=== PATIENT | female | born 1975 | race Two or more races ===

== ENCOUNTER 2018-05-15 14:55 | Emergency (ER) | payer MEDICAID ==
[~2018-05-15] VITALS: Ht 152.4 cm; Wt 58.1 kg
[2018-05-15 18:50] VITALS: BP 148/96
== END 2018-05-15 20:22 | disposition home or self-care (01) ==
LOC: ER 15:17
DX: R60.9 Edema, unspecified (principal); M79.641 Pain in right hand; M79.642 Pain in left hand; M79.671 Pain in right foot; M79.672 Pain in left foot; J45.909 Unspecified asthma, uncomplicated
CPT/HCPCS: 81025

== ENCOUNTER 2019-08-19 06:59 | Emergency (ER) | payer MEDICAID ==
[~2019-08-19] VITALS: Ht 149.9 cm; Wt 53.1 kg
[2019-08-19 07:09] VITALS: BP 147/98
[2019-08-19] MEDS ORDERED: KETOROLAC TROMETH 60MG/2ML VIAL IM ONE (07:30)
== END 2019-08-19 07:53 | disposition home or self-care (01) ==
LOC: ER 07:02
DX: S46.912A Strain of unspecified muscle, fascia and tendon at shoulder and upper arm level, left arm, initial encounter (principal); S46.911A Strain of unspecified muscle, fascia and tendon at shoulder and upper arm level, right arm, initial encounter; J45.909 Unspecified asthma, uncomplicated; X50.0XXA Overexertion from strenuous movement or load, initial encounter; Y93.B9 Activity, other involving muscle strengthening exercises; Y92.89 Other specified places as the place of occurrence of the external cause; Y99.8 Other external cause status
CPT/HCPCS: 96372; 99283; J1885

== ENCOUNTER 2020-01-05 11:58 | Emergency (ER) | payer MEDICAID ==
[~2020-01-05] VITALS: Ht 160 cm; Wt 63.5 kg
[2020-01-05 14:18] VITALS: BP 150/89
== END 2020-01-05 14:24 | disposition home or self-care (01) ==
LOC: ER 11:58
DX: J20.9 Acute bronchitis, unspecified (principal)
CPT/HCPCS: 71046

== ENCOUNTER 2020-03-16 13:10 | Inpatient (IN) | payer MEDICAID ==
[~2020-03-16] VITALS: Ht 149.9 cm; Wt 65.7 kg
[2020-03-16 14:16] LABS: Basophils # (auto) 0.1 10 ^3/uL (0-0.2); Basophils % (auto) 0.8 % (0.0-2.0); Eosinophils # (auto) 1.2 10 ^3/uL (0-0.8); Hemoglobin 12.9 g/dL (12.2-16.2); Lymphocytes # (auto) 2.6 10 ^3/uL (0.4-5.4); Mean Corpuscular Hemoglobin 28.9 pg (28.0-32.0); Mean Corpuscular Hgb Conc. 33.1 g/dL (32.0-36.0); Mean Corpuscular Volume 87.3 fL (80.0-100.0); Monocytes # (auto) 0.4 10 ^3/uL (0-1.3); Monocytes % (auto) 4.5 % (0.0-12.0); Neutrophils % (auto) 53.7 % (37.0-80.0); Platelet Count (auto) 523 10^3/uL (140-450); Red Blood Cells 4.46 10^6/uL (4.0-5.20); Red Cell Distribution Width 14.3 % (11.8-14.3); White Blood Cell 9.2 10^3/uL (4.4-10.8)
[2020-03-16 14:23] LABS: Urine WBC None Seen /hpf (0 - 5)
[2020-03-16 14:38] LABS: Albumin 3.4 g/dL (3.4-5.0); Calcium 8.6 mg/dL (8.5-10.1); Potassium 3.8 mmol/L (3.5-5.1)
[2020-03-16 14:43] LABS: Urine Bacteria FEW /hpf (None Seen); Urine Blood Negative /uL (Negative); Urine Mucus FEW (None Seen); Urine Specific Gravity 1.012 (1.001-1.035)
[2020-03-16 14:45] LABS: BUN/Creatinine Ratio 14.9; Bilirubin, Total 0.3 mg/dL (0.2-1.0); Total Protein 7.2 g/dL (6.4-8.2)
[2020-03-16] MEDS ORDERED: ONDANSETRON HCL 4 MG/2 ML VIAL IV ONE (14:45)
[2020-03-16] MEDS ORDERED: MORPHINE SULF INJ 2 MG/ML SYRINGE 1ML IV ONE (14:45)
[2020-03-16] MEDS ORDERED: levoFLOXacin 500MG 100 ML IV ONE (16:00)
[2020-03-16] MEDS ORDERED: metroNIDAZOLE 500MG/100ML 100 ML IV ONE (16:00)
[2020-03-16] MEDS ORDERED: SODIUM CHLORIDE 0.9% 1,000 ML IV ONE (16:15)
[2020-03-16] MEDS ORDERED: ONDANSETRON HCL 4 MG/2 ML VIAL IV PRN (18:15)
[2020-03-16] MEDS ORDERED: MORPHINE SULF INJ 2 MG/ML SYRINGE 1ML IV PRN (18:15)
[2020-03-16] MEDS ORDERED: NITROGLYCERIN 0.4 MG SL TAB SL PRN (18:15)
[2020-03-16 19:57] VITALS: BP 142/86
[2020-03-16] MEDS: D5W/SOD CHLO 0.9% 1,000 ML IV SCH (20:49)
--- NOTE | 2020-03-16 20:50 | NUR ---
MS admit from ER SUZ[facility]TE NG E admitted to tele/MS. Patient oriented to JANETH LUTZ, RN primary RN, unit, room, bed, and unit policies regarding patient care and visiting hours. Safety measures in place bed in lowest position, side rails up x2, and call light within reach. Patient weighed by bedscale and encouraged to call if they need something. All questions and concerns addressed, patient verbalized understanding.
[2020-03-16 22:00] VITALS: BP 142/86
[2020-03-16] MEDS: metroNIDAZOLE 500MG/100ML 100 ML IV SCH (22:23)
[2020-03-17 05:00] VITALS: BP 113/60
[2020-03-17] MEDS: metroNIDAZOLE 500MG/100ML 100 ML IV SCH ×3 (05:59→21:52)
[2020-03-17 06:29] LABS: Hematocrit 34.1 % (36.0-46.0); Hemoglobin 11.2 g/dL (12.2-16.2); Mean Corpuscular Hgb Conc. 32.8 g/dL (32.0-36.0); Mean Corpuscular Volume 88.6 fL (80.0-100.0); Platelet Count (auto) 418 10^3/uL (140-450); Red Blood Cells 3.85 10^6/uL (4.0-5.20); Red Cell Distribution Width 14.4 % (11.8-14.3); White Blood Cell 7.2 10^3/uL (4.4-10.8)
[2020-03-17 06:44] LABS: Potassium 3.7 mmol/L (3.5-5.1)
[2020-03-17 06:46] LABS: Basophils % (manual) 0 (0.0-2.0); Blast Cells 0; Metamyelocytes % 0; Myelocytes % 0; Promyelocytes % 0; Reactive Lymphocytes 0
[2020-03-17 07:17] LABS: Albumin 2.6 g/dL (3.4-5.0); BUN/Creatinine Ratio 9.4; Bilirubin, Total 0.3 mg/dL (0.2-1.0); Calcium 7.7 mg/dL (8.5-10.1)
[2020-03-17 08:26] LABS: Band Neutrophils % (manual) 1; Eosinophils % (manual) 16 (0-7); Lymphocytes % (manual) 31 (10.0-50.0); Monocytes % (manual) 4 (0-12)
[2020-03-17 09:00] VITALS: BP 107/69
[2020-03-17] MEDS: D5W/SOD CHLO 0.9% 1,000 ML IV SCH ×3 (10:17→21:52)
[2020-03-17] MEDS: PANTOPRAZOLE 40 MG TAB PO SCH (10:17)
[2020-03-17] MEDS: levoFLOXacin 500MG 100 ML IV SCH (10:17)
[2020-03-17] MEDS: MORPHINE SULF INJ 2 MG/ML SYRINGE 1ML IV PRN (10:22)
--- NOTE | 2020-03-17 11:15 | NUR ---
Est energy needs 0741-8783 kcal (25-30 kcal/kg BW 59.7kg) Est protein needs 48-60g (0.8-1g/kg BW 59.7kg) Will reassess prn. Addendum: 03/17/20 at [address] Amended: Links added.
[2020-03-17 13:00] VITALS: BP 113/70
--- NOTE | 2020-03-17 13:13 | NUR ---
PT AMBULATING IN HALLWAYS INDEPENDENTLY PER MD ORDER.
[2020-03-17 17:00] VITALS: BP 98/62
--- NOTE | 2020-03-17 19:20 | NUR ---
Opening Shift Note Assumed care of patient, Patient is awake and alert. No S/S of distress/SOB or pain. Instructed on POC and to call for assist PRN, will continue to monitor for changes Q1hr and PRN. Bed locked in lowest position and bed rails up x3. Call light within reach.
[2020-03-17] MEDS ORDERED: METH4TAB7 PO (19:35)
[2020-03-17] MEDS ORDERED: ALBUAER3 IN (19:35)
[2020-03-17] MEDS ORDERED: IBUP600T27 PO (19:35)
[2020-03-17] MEDS ORDERED: LORA-622 PO (19:35)
[2020-03-17] MEDS ORDERED: ALBU0.084 NEB (19:36)
[2020-03-17 22:00] VITALS: BP 150/98
[2020-03-18 05:00] VITALS: BP 118/56
[2020-03-18 05:12] LABS: Hematocrit 32.6 % (36.0-46.0); Hemoglobin 10.6 g/dL (12.2-16.2); Mean Corpuscular Hemoglobin 28.9 pg (28.0-32.0); Mean Corpuscular Hgb Conc. 32.5 g/dL (32.0-36.0); Mean Corpuscular Volume 89.1 fL (80.0-100.0); Platelet Count (auto) 387 10^3/uL (140-450); Red Blood Cells 3.66 10^6/uL (4.0-5.20); Red Cell Distribution Width 14.4 % (11.8-14.3); White Blood Cell 7.9 10^3/uL (4.4-10.8)
[2020-03-18 05:32] LABS: Potassium 3.7 mmol/L (3.5-5.1)
[2020-03-18 05:38] LABS: Albumin 2.5 g/dL (3.4-5.0); BUN/Creatinine Ratio 6.9; Calcium 7.8 mg/dL (8.5-10.1)
[2020-03-18 05:40] LABS: Basophils % (manual) 0 (0.0-2.0); Blast Cells 0; Metamyelocytes % 0; Myelocytes % 0; Promyelocytes % 0; Reactive Lymphocytes 0
[2020-03-18 05:41] LABS: Bilirubin, Total 0.2 mg/dL (0.2-1.0); Total Protein 5.9 g/dL (6.4-8.2)
[2020-03-18] MEDS: metroNIDAZOLE 500MG/100ML 100 ML IV SCH ×3 (06:25→22:06)
[2020-03-18 08:56] VITALS: BP 124/63
[2020-03-18] MEDS: PANTOPRAZOLE 40 MG TAB PO SCH (09:09)
[2020-03-18] MEDS: levoFLOXacin 500MG 100 ML IV SCH (09:09)
[2020-03-18] MEDS: D5W/SOD CHLO 0.9% 1,000 ML IV SCH ×2 (09:09→22:06)
[2020-03-18 11:00] LABS: Band Neutrophils % (manual) 1; Eosinophils % (manual) 21 (0-7); Lymphocytes % (manual) 34 (10.0-50.0); Monocytes % (manual) 3 (0-12)
[2020-03-18 12:58] VITALS: BP 136/73
--- NOTE | 2020-03-18 13:32 | NUR ---
PT REPORTS SHE WANTS TO WALK AROUND OUTSIDE TO SEE HER FAMILY. AMA SIGNED AND PLACED IN CHART.
[2020-03-18 17:00] VITALS: BP 159/76
[2020-03-18] MEDS: MORPHINE SULF INJ 2 MG/ML SYRINGE 1ML IV PRN (17:09)
[2020-03-18 18:37] VITALS: BP 149/81
--- NOTE | 2020-03-18 18:38 | NUR ---
CLEANER FURNITURE REPORTED PT BP 159/94, HR 76. GAVE PRN MORPHINE, BP NOW 149/94, HR 74. WILL CONTINUE TO MONITOR.
[2020-03-18 22:00] VITALS: BP 100/63
--- NOTE | 2020-03-19 02:54 | NUR ---
CARE ENDORSED TO DAY SHIFT RN MICKEY
--- NOTE | 2020-03-19 03:40 | NUR ---
Opening Shift Note: Assumed care of patient. Patient asleep at this time. No S/S of distress/SOB or pain. Bed in lowest locked position, side rails up x 2, call light within reach. Patient will be instructed on POC and to call for assist PRN, will continue to monitor for changes Q1hr and PRN.
[2020-03-19 05:00] VITALS: BP 120/73
[2020-03-19] MEDS: metroNIDAZOLE 500MG/100ML 100 ML IV SCH ×2 (05:28→14:00)
[2020-03-19 06:41] LABS: Hematocrit 32.1 % (36.0-46.0); Hemoglobin 10.5 g/dL (12.2-16.2); Mean Corpuscular Hemoglobin 28.9 pg (28.0-32.0); Mean Corpuscular Hgb Conc. 32.8 g/dL (32.0-36.0); Mean Corpuscular Volume 88.2 fL (80.0-100.0); Platelet Count (auto) 398 10^3/uL (140-450); Red Blood Cells 3.64 10^6/uL (4.0-5.20); Red Cell Distribution Width 14.2 % (11.8-14.3); White Blood Cell 7.3 10^3/uL (4.4-10.8)
[2020-03-19 06:43] LABS: Band Neutrophils % (manual) 0; Basophils % (manual) 0 (0.0-2.0); Blast Cells 0; Metamyelocytes % 0; Myelocytes % 0; Promyelocytes % 0; Reactive Lymphocytes 0
[2020-03-19 07:10] LABS: Potassium 3.7 mmol/L (3.5-5.1)
[2020-03-19 07:15] LABS: BUN/Creatinine Ratio 14.1; Calcium 7.8 mg/dL (8.5-10.1)
[2020-03-19 08:19] LABS: Eosinophils % (manual) 19 (0-7); Lymphocytes % (manual) 37 (10.0-50.0); Monocytes % (manual) 4 (0-12)
[2020-03-19 08:50] VITALS: BP 116/69
[2020-03-19] MEDS: PANTOPRAZOLE 40 MG TAB PO SCH (09:55)
[2020-03-19] MEDS: levoFLOXacin 500MG 100 ML IV SCH (09:55)
--- NOTE | 2020-03-19 12:46 | NUR ---
DR. MURDOCK: Dr. Orantes at bedside. Discussed poc with patient.
[2020-03-19 12:48] VITALS: BP 134/85
[2020-03-19 13:39] VITALS: BP 116/69
== END 2020-03-19 15:17 | disposition home or self-care (01) | DRG 244 ==
LOC: ER 13:10 → OVERFLOW 13:11 → WEST WING 19:58
PROVIDERS: ADMIT Nurse Practitioner Acute Care; ATTEND Internal Medicine
DX: K57.32 Diverticulitis of large intestine without perforation or abscess without bleeding (principal); E43 Unspecified severe protein-calorie malnutrition; J45.909 Unspecified asthma, uncomplicated; N83.201 Unspecified ovarian cyst, right side; E66.9 Obesity, unspecified; N83.202 Unspecified ovarian cyst, left side; Z68.29 Body mass index [BMI] 29.0-29.9, adult; F41.9 Anxiety disorder, unspecified; Z88.0 Allergy status to penicillin
CPT/HCPCS: 36415; 74176; 76856; 80048; 80053; 81001; 81025; 82150; 83690; 85007; 85025; 85027; 96365; 96366; 96367; 96375; G0378; J1956; J2405; J3490; J7042

== ENCOUNTER 2020-07-15 12:10 | Emergency (ER) | payer MEDICAID ==
[~2020-07-15] VITALS: Ht 149.9 cm; Wt 58.1 kg
[~2020-07-15 12:10] MED LIST: ALBU0.084 NEB; ALBUAER3 IN; IBUP600T27 PO; LORA-622 PO; METH4TAB7 PO
[2020-07-15 12:16] VITALS: BP 149/100
== END 2020-07-15 14:15 | disposition home or self-care (01) ==
LOC: ER 12:10
DX: U07.1 COVID-19 (principal)
CPT/HCPCS: 36415; 71045; 87426

== ENCOUNTER 2020-12-03 09:39 | Emergency (ER) | payer MEDICAID ==
[~2020-12-03] VITALS: Ht 149.9 cm; Wt 58.1 kg
[2020-12-03 09:49] VITALS: BP 117/90
[2020-12-03] MEDS: KETOROLAC TROMETH 60MG/2ML VIAL IM ONE ×2 (10:09→10:10)
[2020-12-03 10:14] LABS: Mean Corpuscular Hemoglobin 23.5 pg (28.0-32.0)
[2020-12-03 10:14] LABS: Urine Amorphous Crystal FEW /hpf (None Seen); Urine Bacteria FEW /hpf (None Seen); Urine Blood 3+ /uL (Negative); Urine Mucus FEW (None Seen); Urine Specific Gravity 1.024 (1.001-1.035); Urine WBC 8 /hpf (0 - 5)
[2020-12-03 10:16] LABS: Hematocrit 36.4 % (36.0-46.0); Hemoglobin 11.6 g/dL (12.2-16.2); Mean Corpuscular Hgb Conc. 31.8 g/dL (32.0-36.0); Mean Corpuscular Volume 73.8 fL (80.0-100.0); Platelet Count (auto) 584 10^3/uL (140-450); Red Blood Cells 4.93 10^6/uL (4.0-5.20); Red Cell Distribution Width 18.4 % (11.8-14.3); White Blood Cell 7.7 10^3/uL (4.4-10.8)
[2020-12-03 10:20] LABS: Band Neutrophils % (manual) 0; Basophils % (manual) 0 (0.0-2.0); Blast Cells 0; Metamyelocytes % 0; Myelocytes % 0; Promyelocytes % 0; Reactive Lymphocytes 0
[2020-12-03 10:38] LABS: Calcium 8.7 mg/dL (8.5-10.1); Potassium 3.9 mmol/L (3.5-5.1)
[2020-12-03 10:41] LABS: BUN/Creatinine Ratio 20.3
[2020-12-03 11:46] LABS: Eosinophils % (manual) 28 (0-7); Lymphocytes % (manual) 39 (10.0-50.0); Monocytes % (manual) 2 (0-12)
== END 2020-12-03 11:45 | disposition home or self-care (01) ==
LOC: ER 09:39
DX: N83.201 Unspecified ovarian cyst, right side (principal); N85.2 Hypertrophy of uterus; J45.909 Unspecified asthma, uncomplicated; Z32.02 Encounter for pregnancy test, result negative; Z90.49 Acquired absence of other specified parts of digestive tract; Z88.0 Allergy status to penicillin
CPT/HCPCS: 36415; 76856; 80048; 81001; 81025; 85007; 85027; 99284; J1885; J7030

== ENCOUNTER 2020-12-13 06:18 | Emergency (ER) | payer MEDICAID ==
[~2020-12-13] VITALS: Ht 149.9 cm; Wt 59.9 kg
[2020-12-13 07:27] LABS: Red Cell Distribution Width 19.7 % (11.8-14.3)
[2020-12-13 07:29] LABS: Hematocrit 31.2 % (36.0-46.0); Hemoglobin 10.2 g/dL (12.2-16.2); Mean Corpuscular Hemoglobin 24.4 pg (28.0-32.0); Mean Corpuscular Hgb Conc. 32.8 g/dL (32.0-36.0); Mean Corpuscular Volume 74.5 fL (80.0-100.0); Red Blood Cells 4.19 10^6/uL (4.0-5.20); White Blood Cell 7.5 10^3/uL (4.4-10.8)
[2020-12-13 07:31] LABS: Band Neutrophils % (manual) 0; Basophils % (manual) 0 (0.0-2.0); Blast Cells 0; Metamyelocytes % 0; Monocytes % (manual) 0 (0-12); Myelocytes % 0; Promyelocytes % 0; Reactive Lymphocytes 0
[2020-12-13 07:49] LABS: Potassium 3.7 mmol/L (3.5-5.1)
[2020-12-13 07:54] LABS: Albumin 3.1 g/dL (3.4-5.0); BUN/Creatinine Ratio 19.7; Bilirubin, Total 0.2 mg/dL (0.2-1.0); Calcium 8.6 mg/dL (8.5-10.1); Total Protein 6.6 g/dL (6.4-8.2)
[2020-12-13 08:23] LABS: Eosinophils % (manual) 20 (0-7); Lymphocytes % (manual) 23 (10.0-50.0)
[2020-12-13] MEDS ORDERED: ACETAMINOPHEN 325 MG TAB PO ONE (10:00)
[2020-12-13] MEDS ORDERED: cefTRIAXone W LIDOCAINE 1 GM IM IM ONE (10:00)
[2020-12-13 10:15] LABS: Urine Bacteria NONE SEEN /hpf (None Seen); Urine Blood Negative /uL (Negative); Urine Specific Gravity 1.015 (1.001-1.035); Urine WBC 2 /hpf (0 - 5)
[2020-12-13] MEDS: cefTRIAXone W LIDOCAINE 1 GM IM IM ONE ×2 (11:17→11:22)
[2020-12-13 11:28] VITALS: BP 124/85
== END 2020-12-13 11:40 | disposition home or self-care (01) ==
LOC: ER 06:18
DX: J06.9 Acute upper respiratory infection, unspecified (principal); F41.9 Anxiety disorder, unspecified; J45.909 Unspecified asthma, uncomplicated; Z79.899 Other long term (current) drug therapy; Z88.0 Allergy status to penicillin
CPT/HCPCS: 36415; 71045; 80053; 81001; 85007; 85027; 99285; J0696

== ENCOUNTER 2021-06-02 11:56 | Emergency (ER) | payer MEDICAID ==
[~2021-06-02] VITALS: Ht 149.9 cm; Wt 58.5 kg
[2021-06-02] MEDS ORDERED: ACETAMINOPHEN 500 MG TAB PO ONE (13:00)
[2021-06-02] MEDS ORDERED: cefTRIAXone SOD 1,000 MG VL IM ONE (13:00)
[2021-06-02 13:02] VITALS: BP 149/93
== END 2021-06-02 13:51 | disposition home or self-care (01) ==
LOC: ER 11:56
DX: J03.90 Acute tonsillitis, unspecified (principal); J45.909 Unspecified asthma, uncomplicated; Z98.51 Tubal ligation status; Z88.0 Allergy status to penicillin
CPT/HCPCS: 71045; 81002; 96372; 99283; J0696

== ENCOUNTER 2021-10-10 08:22 | Emergency (ER) | payer MEDICAID ==
[~2021-10-10] VITALS: Ht 149.9 cm; Wt 58.1 kg
[2021-10-10 08:54] VITALS: BP 138/87
[2021-10-10 09:20] LABS: Urine Bacteria NONE SEEN /hpf (None Seen); Urine Blood 1+ /uL (Negative); Urine Mucus FEW (None Seen); Urine Specific Gravity 1.019 (1.001-1.035); Urine WBC 1 /hpf (0 - 5)
[2021-10-10] MEDS ORDERED: ALBUTEROL SULF 2.5 MG/0.5ML(0.5%) NEB SOLN ONE (09:54)
[2021-10-10] MEDS ORDERED: IPRATROPIUM BROM 0.5 MG/2.5ML INH SOL ONE (09:56)
[2021-10-10] MEDS ORDERED: ALBUTEROL SULF 2.5 MG/0.5ML(0.5%) NEB SOLN NEB ONE (10:00)
[2021-10-10] MEDS ORDERED: IPRATROPIUM BROM 0.5 MG/2.5ML INH SOL NEB ONE (10:00)
[2021-10-10] MEDS ORDERED: ALBU108A5 IN (10:04)
[2021-10-10] MEDS ORDERED: PRED20TA2 PO (10:04)
[2021-10-10] MEDS ORDERED: CEPH500T PO (10:04)
== END 2021-10-10 10:25 | disposition home or self-care (01) ==
LOC: ER 08:22
DX: J45.901 Unspecified asthma with (acute) exacerbation (principal); J20.9 Acute bronchitis, unspecified; H66.92 Otitis media, unspecified, left ear; Z20.822 Contact with and (suspected) exposure to COVID-19
CPT/HCPCS: 36415; 71046; 81001; 81025; 87426; 94640; 99284; J7644

== ENCOUNTER 2022-04-10 10:11 | Emergency (ER) | payer MEDICAID ==
[~2022-04-10] VITALS: Ht 149.9 cm; Wt 58.1 kg
[~2022-04-10 10:11] MED LIST changes: +ALBU108A5 IN; +CEPH500T PO; +PRED20TA2 PO
[2022-04-10 10:36] VITALS: BP 161/98
[2022-04-10 12:21] LABS: Urine Bacteria NONE SEEN /hpf (None Seen); Urine Blood Negative /uL (Negative); Urine Mucus FEW (None Seen); Urine Specific Gravity 1.017 (1.001-1.035); Urine WBC 1 /hpf (0 - 5)
[2022-04-10 12:24] LABS: Basophils # (auto) 0 10 ^3/uL (0-0.2); Basophils % (auto) 0.2 % (0.0-2.0); Eosinophils # (auto) 0.9 10 ^3/uL (0-0.8); Monocytes # (auto) 0.4 10 ^3/uL (0-1.3)
[2022-04-10 12:26] LABS: Eosinophils % (auto) 11.8 % (0.0-7.0); Hematocrit 38.4 % (36.0-46.0); Hemoglobin 12.2 g/dL (12.2-16.2); Lymphocytes % (auto) 13.2 % (10.0-50.0); Mean Corpuscular Hemoglobin 25.8 pg (28.0-32.0); Mean Corpuscular Hgb Conc. 31.9 g/dL (32.0-36.0); Mean Corpuscular Volume 81.1 fL (80.0-100.0); Neutrophils # (auto) 5.5 10 ^3/uL (1.6-8.6); Neutrophils % (auto) 69.8 % (37.0-80.0); Nucleated Red Blood Cells % 0.1 %; Red Blood Cells 4.73 10^6/uL (4.0-5.20); Red Cell Distribution Width 15.6 % (11.8-14.3); White Blood Cell 7.9 10^3/uL (4.4-10.8)
[2022-04-10 12:41] LABS: Albumin 3.2 g/dL (3.4-5.0); BUN/Creatinine Ratio 13.4; Calcium 8.8 mg/dL (8.5-10.1); Potassium 4.3 mmol/L (3.5-5.1)
[2022-04-10 12:44] LABS: Bilirubin, Total 0.4 mg/dL (0.2-1.0); Total Protein 7.2 g/dL (6.4-8.2)
[2022-04-10] MEDS ORDERED: ACET-1158 PO (14:17)
[2022-04-10] MEDS ORDERED: DOXY-332 PO (14:17)
[2022-04-10] MEDS ORDERED: ACETAMINOPHEN 325 MG TAB PO ONE (14:30)
== END 2022-04-10 16:13 | disposition home or self-care (01) ==
LOC: ER 10:11
DX: U07.1 COVID-19 (principal); J06.9 Acute upper respiratory infection, unspecified; Z32.02 Encounter for pregnancy test, result negative; Z88.0 Allergy status to penicillin
CPT/HCPCS: 36415; 74176; 80053; 81001; 81025; 83690; 85025; 87804

== ENCOUNTER 2022-08-13 11:45 | Emergency (ER) | payer MEDICAID ==
[~2022-08-13] VITALS: Ht 149.9 cm; Wt 54.0 kg
[~2022-08-13 11:45] MED LIST changes: +ACET-1158 PO; +DOXY-332 PO
[2022-08-13 12:55] LABS: Hemoglobin 14.1 g/dL (12.2-16.2)
[2022-08-13 12:56] LABS: Hematocrit 42.9 % (36.0-46.0); Mean Corpuscular Hemoglobin 28.4 pg (28.0-32.0); Mean Corpuscular Hgb Conc. 32.8 g/dL (32.0-36.0); Mean Corpuscular Volume 86.7 fL (80.0-100.0); Red Blood Cells 4.95 10^6/uL (4.0-5.20); Red Cell Distribution Width 14.3 % (11.8-14.3); White Blood Cell 8.8 10^3/uL (4.4-10.8)
[2022-08-13 13:00] LABS: Basophils % (manual) 0 (0.0-2.0); Blast Cells 0; Metamyelocytes % 0; Myelocytes % 0; Promyelocytes % 0; Reactive Lymphocytes 0
[2022-08-13 13:20] LABS: Albumin 3.6 g/dL (3.4-5.0); BUN/Creatinine Ratio 17.6; Bilirubin, Total 0.4 mg/dL (0.2-1.0); Calcium 9.1 mg/dL (8.5-10.1); Potassium 4.3 mmol/L (3.5-5.1); Total Protein 7.5 g/dL (6.4-8.2)
[2022-08-13 14:16] LABS: Band Neutrophils % (manual) 3; Eosinophils % (manual) 21 (0-7); Lymphocytes % (manual) 33 (10.0-50.0); Monocytes % (manual) 5 (0-12)
[2022-08-13 15:19] LABS: Urine Bacteria FEW /hpf (None Seen); Urine Blood 1+ /uL (Negative); Urine Mucus FEW (None Seen); Urine Specific Gravity 1.016 (1.001-1.035); Urine WBC <1 /hpf (0 - 5)
[2022-08-13 17:40] VITALS: BP 157/94
== END 2022-08-13 17:42 | disposition home or self-care (01) ==
LOC: ER 11:45
DX: R10.11 Right upper quadrant pain (principal); Z79.1 Long term (current) use of non-steroidal anti-inflammatories (NSAID); Z79.899 Other long term (current) drug therapy; Z88.0 Allergy status to penicillin
CPT/HCPCS: 36415; 74176; 80053; 81001; 82150; 83690; 84702; 85007; 85027; A4565

== ENCOUNTER 2022-12-04 19:45 | Emergency (ER) | payer MEDICAID ==
[~2022-12-04] VITALS: Ht 149.9 cm; Wt 60.0 kg
[2022-12-04 21:03] LABS: Hematocrit 38.7 % (36.0-46.0)
[2022-12-04 21:05] LABS: Mean Corpuscular Hemoglobin 29.7 pg (28.0-32.0); Mean Corpuscular Hgb Conc. 33.6 g/dL (32.0-36.0); Mean Corpuscular Volume 88.4 fL (80.0-100.0); Red Blood Cells 4.38 10^6/uL (4.0-5.20); Red Cell Distribution Width 13.9 % (11.8-14.3); White Blood Cell 9.3 10^3/uL (4.4-10.8)
[2022-12-04 21:08] LABS: Band Neutrophils % (manual) 0; Basophils % (manual) 0 (0.0-2.0); Blast Cells 0; Metamyelocytes % 0; Myelocytes % 0; Promyelocytes % 0; Reactive Lymphocytes 0
[2022-12-04 21:12] LABS: Albumin 3.4 g/dL (3.4-5.0); BUN/Creatinine Ratio 24.3; Calcium 8.5 mg/dL (8.5-10.1); Potassium 3.7 mmol/L (3.5-5.1)
[2022-12-04 21:15] LABS: Bilirubin, Total 0.2 mg/dL (0.2-1.0); Total Protein 7.6 g/dL (6.4-8.2)
[2022-12-04 21:34] LABS: Eosinophils % (manual) 19 (0-7); Lymphocytes % (manual) 37 (10.0-50.0); Monocytes % (manual) 7 (0-12)
[2022-12-04] MEDS ORDERED: KETOROLAC TROMETH 30 MG/ML 1ML VIAL IM ONE (22:00)
[2022-12-04] MEDS ORDERED: CYCL-837 PO (22:04)
[2022-12-04 22:51] VITALS: BP 149/93
== END 2022-12-04 22:53 | disposition home or self-care (01) ==
LOC: ER 19:49
DX: G44.209 Tension-type headache, unspecified, not intractable (principal); R07.89 Other chest pain; J45.909 Unspecified asthma, uncomplicated
CPT/HCPCS: 36415; 70450; 71045; 80053; 84484; 85007; 85027; 96372; 99285; J1885

== ENCOUNTER 2023-10-04 17:20 | Emergency (ER) | payer MEDICAID ==
[~2023-10-04] VITALS: Ht 149.9 cm; Wt 61.3 kg
[~2023-10-04 17:20] MED LIST changes: -ACET-1158 PO; +ACET500T58 PO; +CYCL-837 PO; -DOXY-332 PO; +DOXY-448 PO; +IBUP-1454 PO; -IBUP600T27 PO; -METH4TAB7 PO; +METH4TAB9 PO
[2023-10-04 18:37] LABS: Mean Corpuscular Hgb Conc. 33.5 g/dL (32.0-36.0); Red Blood Cells 4.59 10^6/uL (4.0-5.20)
[2023-10-04 18:39] LABS: Hematocrit 40.7 % (36.0-46.0); Hemoglobin 13.6 g/dL (12.2-16.2); Mean Corpuscular Hemoglobin 29.7 pg (28.0-32.0); Mean Corpuscular Volume 88.6 fL (80.0-100.0); Red Cell Distribution Width 13.6 % (11.8-14.3); White Blood Cell 8.7 10^3/uL (4.4-10.8)
[2023-10-04 18:43] LABS: Basophils % (manual) 0 (0.0-2.0); Blast Cells 0; Promyelocytes % 0; Reactive Lymphocytes 0
[2023-10-04 18:56] LABS: Alanine Aminotransferase 40 U/L (7-40); Albumin 4.4 g/dL (3.2-4.8); Alkaline Phosphatase 138 U/L (46-116); Anion Gap 6 (5-15); Aspartate Aminotransferase 41 U/L (13-40); BUN/Creatinine Ratio 14.1 (10.0-20.0); Blood Urea Nitrogen 10 mg/dL (9-23); Calcium 9.6 mg/dL (8.5-10.1); Carbon Dioxide 28 mmol/L (20-30); Chloride 105 mmol/L (98-107); Glucose 97 mg/dL (74-106); Potassium 3.7 mmol/L (3.5-5.1); Sodium 139 mmol/L (136-145)
[2023-10-04 18:57] LABS: Bilirubin, Total 0.3 mg/dL (0.2-1.0); Total Protein 7.3 g/dL (5.7-8.2)
[2023-10-04 19:25] LABS: Band Neutrophils % (manual) 17; Eosinophils % (manual) 8 (0-7); Lymphocytes % (manual) 20 (10.0-50.0); Metamyelocytes % 4; Monocytes % (manual) 5 (0-12); Myelocytes % 1; Platelet Estimate Adequate; Smudge Cells 1 /100 WBC
[2023-10-04 21:16] LABS: Urine Bacteria NONE SEEN /hpf (None Seen); Urine Blood 3+ /uL (Negative); Urine Clarity Clear (Clear); Urine Color Yellow (Yellow); Urine Protein, UAD Negative (Negative); Urine Specific Gravity 1.017 (1.001-1.035); Urine Urobilinogen Normal (Negative); Urine WBC 14 /hpf (0 - 5); Urine pH 5.5 (5.0-8.0)
[2023-10-04] MEDS ORDERED: NITROFURANTOIN 100 mg CAP PO ONE (21:45)
[2023-10-04] MEDS ORDERED: ACET500T58 PO (21:50)
[2023-10-04] MEDS ORDERED: NITR-87 PO (21:50)
[2023-10-04] MEDS ORDERED: PHEN-1044 PO (21:50)
[2023-10-04 22:38] VITALS: BP 138/88; PULSE 81; RESP 16; TEMP 98.4; O2SAT 96
== END 2023-10-04 22:40 | disposition home or self-care (01) ==
LOC: ER 17:20
DX: N39.0 Urinary tract infection, site not specified (principal); J45.909 Unspecified asthma, uncomplicated; Z98.51 Tubal ligation status; Z32.02 Encounter for pregnancy test, result negative; Z88.0 Allergy status to penicillin
CPT/HCPCS: 36415; 80053; 81001; 81025; 85007; 85027

== ENCOUNTER 2025-03-19 08:50 | Emergency (ER) | payer MEDICAID ==
[~2025-03-19] VITALS: Ht 149.9 cm; Wt 60.7 kg
[~2025-03-19 08:50] MED LIST changes: -DOXY-448 PO; +DOXY100C79 PO; +NITR-87 PO; +PHEN-1044 PO
--- NOTE | 2025-03-19 09:41 | ED.PDOC ---
History of Present Illness(SKN HPI Comments This is a 49 year old female presenting to the ED with chief complaint of rash. 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 Patient relays that she had gotten sick with something she picked up from work, spreading it to her son and causing the symptoms of rash to their necks. Patient denies any fever, chills, N/V/D, chest pain, or SOB. Chief Complaint: Rash Time Seen by MD: 09:40 Primary Care Provider: Ysabel History of Present Illness: Nurses Notes, Medications, Allergies Allergies: Coded Allergies: Penicillins (Verified Allergy, Unknown, 12/03/20) Uncoded Allergies: PCN (Allergy, Unknown, 08/19/19) Home Meds Active Scripts Acetaminophen (Acetaminophen) 500 Mg Tab, 500 MG PO Q4HP PRN, #20 TAB Prov:DANAE SANCHEZ PAC 10/04/23 Phenazopyridine HCl (Phenazopyridine Hydrochlo) 100 Mg Tab, 100 MG PO Q8HP PRN, #10 TAB Prov:DANAE SANCHEZ PAC 10/04/23 Nitrofurantoin Monohydrate Mac (Macrobid) 100 Mg Cap, 100 MG PO BID for 5 Days, #10 CAP Prov:DANAE SANCHEZ PAC 10/04/23 Cyclobenzaprine Hcl (Cyclobenzaprine Hcl) 5 Mg Tab, 1 TAB PO QPM PRN, #30 TAB Prov:BLAS COLLAZO 12/04/22 Doxycycline (Monohydrate) (Doxycycline) 100 Mg Cap, 100 MG PO BID for 7 Days, #14 CAP 0 Refills Prov:JOSE ALEJANDRO COX 04/10/22 Acetaminophen (Acetaminophen) 500 Mg Tab, 500 MG PO QIDP, #30 TAB 0 Refills Prov:JOSE ALEJANDRO COX 04/10/22 Albuterol Sulfate (Albuterol Sulfate Hfa) 108 Mcg/Act Aer, 108 MCG IN TID for 20 Days, #1 AER 0 Refills Prov:SULEIMAN FORD 10/10/21 Prednisone (Prednisone) 20 Mg Tab, 60 MG PO DAILY for 5 Days, #15 MG Prov:SULEIMAN FORD 10/10/21 Cephalexin Monohydrate (Cephalexin) 500 Mg Tab, 500 MG PO QID for 7 Days, #28 TAB Prov:SULEIMAN FORD TYRESE 10/10/21 Reported Medications Albuterol Sulfate (Albuterol Sulfate) 0.083 % Neb, 1 VIAL NEB PRN PRN for PRN, #50 VIAL 03/17/20 Methylprednisolone (Methylprednisolone) 4 Mg Tab, 4 MG PO BID PRN for "FLARE- UP", MG 03/17/20 Loratadine (Claritin) 10 Mg Tab, 1 TAB PO DAILY PRN for ALLERGIES, #30 TAB 5 Refills 03/17/20 Albuterol Sulfate (VENTOLIN MDI) 90 Mcg Ih, 2 PUFF IN PRN PRN for PRN, INH 03/17/20 Ibuprofen (Ibuprofen) 600 Mg Tab, 600 MG PO BID PRN for PAIN, MG 0 Refills 03/17/20 Information Source: Patient Mode of Arrival: Ambulatory Severity: Moderate Timing: Days Duration: Since onset Prehospital treatment: None Location: Neck Past Medical History PAST MEDICAL HISTORY: Asthma Past Medical History (Other): Well's Syndrome 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 History: BTL, 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 Family History Family History: Family hx of DM, Family hx of Cancer, Family hx of heart roshni, Family hx of HTN Social History Smoker: Non-Smoker Alcohol: Occasionally Drugs: Denies Drug Use Lives In: Home Constitutional: denies: chills, diaphoresis, fatigue, fever, malaise, sweats, weakness, others EENTM: denies: blurred vision, double vision, ear bleeding, ear discharge, ear drainage, ear pain, ear ringing, eye pain, eye redness, hearing loss, mouth pain, mouth swelling, nasal discharge, nose bleeding, nose congestion, nose pain, photophobia, tearing, throat pain, throat swelling, voice changes, others Respiratory: denies: cough, hemoptysis, orthopnea, SOB at rest, shortness of breath, SOB with excertion, stridor, wheezing, others Cardiovascular: denies: chest pain, dizzy spells, diaphoresis, Dyspnea on exertion, edema, irregular heart beat, left arm pain, lightheadedness, palpitations, PND, syncope, others Gastrointestinal: denies: abdomen distended, abdominal pain, blood streaked bowels, constipated, diarrhea, dysphagia, difficulty swallowing, hematemesis, melena, nausea, poor appetite, poor fluid intake, rectal bleeding, rectal pain, vomiting, others Genitourinary: denies: abnormal vagina bleeding, burning, dyspareunia, dysuria, flank pain, frequency, hematuria, incontinence, pain, , vagina discharge, urgency, others Neurological: denies: dizziness, fainting, headache, left sided numbness, left sided weakness, numbness, paresthesia, pre-existing deficit, right sided numbness, right sided weakness, seizure, speech problems, tingling, tremors, weakness, others Musculoskeletal: denies: back pain, gout, joint pain, joint swelling, muscle pain, muscle stiffness, neck pain, others Integumetry: reports: rash; denies: bruises, change in color, change in hair/nails, dryness, laceration, lesions, lumps, wounds, others Allergic/Immunocompromised: denies: Difficulty Healing, Frequent Infections, Hives, Itching, others Hematologic/Lymphatic: denies: anemia, blood clots, easy bleeding, easy bruising, swollen glands, others Endocrine: denies: excessive hunger, excessive sweating, excessive thirst, excessive urination, flushing, intolerance to cold, intolerance to heat, unexplained weight gain, unexplained weight loss, others Psychiatric: denies: anxiety, bipolar disorder, depression, hopeless, panic disorder, schizophrenia, sleepless, suicidal, others All Other Systems: Reviewed and Negative Physical Exam General Appearance: No Apparent Distress, Normal HEENT: Normal ENT Inspection, Pharynx Normal, TMs Normal Neck: Full Range of Motion, Non-Tender, Normal, Normal Inspection Respiratory: Chest Non-Tender, Lungs Clear, No Accessory Muscle Use, No Respiratory Distress, Normal Breath Sounds Cardiovascular: No Edema, No JVD, No Murmur, No Gallop, Normal Peripheral Pulses, Regular Rate/Rhythm Breast Exam: Deferred Gastrointestinal: No Organomegaly, Non Tender, No Pulsatile Mass, Normal Bowel Sounds, Soft Genitalia: Deferred Pelvic: Deferred Rectal: Deferred Extremities: No calf tenderness, Normal capillary refill, Normal inspection, Normal range of motion, Non-tender, No pedal edema Musculoskeletal : Apperance: Normal Neurologic: Alert, cornice maker II-XII nml as Tested, No Motor Deficits, Normal Affect, Normal Mood, No Sensory Deficits Cerebellar Function: Normal Reflexes: Normal Skin: Dry, Warm, Other (Erythematous patch to left neck) Lymphatic: No Adenopathy Was a procedure done? Was a procedure done?: No Differential Diagnosis (INTG) Differential Diagnosis: Cellulitis Differential Diagnosis: N/A Differential Diagnosis: N/A Abscess: N/A Differential Diagnosis: N/A X-Ray, Labs, Meds, VS Vital Signs Date Time Temp Pulse Resp B/P (MAP) Pulse Ox O2 Delivery O2 Flow Rate FiO2 03/19/25 09:14 97.7 95 16 142/93 (109) 97 97.7 Time of 1ST Reevaluation: 10:00 Reevaluation 1ST: Unchanged Patient Education/Counseling: Diagnosis, Treatment Family Education/Counseling: No Family Present Additional Information Previous visits reviewed: 10/04/24 for UTI The following tests were ordered, and results were reviewed by me: None Additional Information was gathered from interviewing the following independent historians: None I reviewed and agreed with the following test results read by other providers: None I discussed treatment and results with medical personnel and: patient Comprehensive systems review obtained and negative except for what is stated in the HPI. SEPSIS Sepsis Screen Date sepsis recognized/suspect: Mar 19, 2025 Time Sepsis recognized/suspect: 913 Recent Procedure: No On Antibiotic Therapy: No Respiratory Rate >20: No Heart Rate >90: Yes Temp<36 C (96.8 F) or >38.3 C: No SBP <90 or MAP <65 mmHG: No New Acute Mental Status Change: No Is the patient on CPAP, BIPAP,: No Vital Signs Date Time Temp Pulse Resp B/P (MAP) Pulse Ox O2 Delivery O2 Flow Rate FiO2 03/19/25 09:14 97.7 95 16 142/93 (109) 97 97.7 Departure 1 Departure Time of Disposition: 09:53 (Patient with a well syndrome. We will discharge patient home with outpatient follow up) Impression: Primary Impression: Wells' syndrome Disposition: HOME / SELF CARE / HOMELESS Condition: Stable Additional Instructions: You were prescribed antibiotics and steroids. Please take as directed. e-Prescriptions Cephalexin (KEFLEX CAPSULE) 250 Mg Cp 250 MG PO TID for 5 Days, #15 TAB Prov: FREDI ARREOLA MD 03/19/25 Prednisone (Prednisone) 20 Mg Tab 40 MG PO DAILY for 5 Days, #10 MG Prov: FREDI ARREOLA MD 03/19/25 Discharged With: Self Critical Care Note Critical Care Time?: No Stability Stability form required: No Heart Score Heart Score: Heart Score Response (Comments) Value History N/A 0 EKG N/A 0 Age N/A 0 Risk Factors N/A 0 Troponin N/A 0 Total 0 I personally scribed for FREDI ARREOLA MD ([email or web address]) on 03/19/25 at 09:41. Electronically submitted by Anderson Juárez ([email or web address]). FREDI ARREOLA MD Mar 19, 2025 09:41
[2025-03-19] MEDS ORDERED: PRED20TA2 PO (09:56)
[2025-03-19] MEDS ORDERED: CEPH250C PO (09:56)
[2025-03-19 10:00] VITALS: BP 143/89; PULSE 88; RESP 18; TEMP 98.4; O2SAT 95
== END 2025-03-19 10:09 | disposition home or self-care (01) ==
LOC: ER 08:50
DX: L98.3 Eosinophilic cellulitis [Wells] (principal); J45.909 Unspecified asthma, uncomplicated; Z98.51 Tubal ligation status; Z98.890 Other specified postprocedural states; Z88.0 Allergy status to penicillin

== ENCOUNTER 2025-05-22 14:24 | Emergency (ER) | payer MEDICAID ==
[~2025-05-22] VITALS: Ht 149.9 cm; Wt 56.0 kg
[~2025-05-22 14:24] MED LIST changes: +CEPH250C PO
--- NOTE | 2025-05-22 15:13 | ED.PDOC ---
GI ASSESSMENT HPI Comments 49-year-old female with a history of asthma, Wells syndrome, hypertension and arthritis brought in by EMS complaining of right lower quadrant pain since yesterday. Patient states the pain is severe, worse with movement, no particular alleviating factors, associated with nausea and vomiting. She denies any diarrhea, fever, constipation or dysuria. Chief Complaint: Abdominal Pain Time Seen by MD: 14:15 Primary Care Provider: Ysabel Reviewed Notes: Nurses Notes, Medications, Allergies Allergies: Coded Allergies: Penicillins (Verified Allergy, Unknown, 12/03/20) Uncoded Allergies: PCN (Allergy, Unknown, 08/19/19) Home Meds Active Scripts Cephalexin (KEFLEX CAPSULE) 250 Mg Cp, 250 MG PO TID for 5 Days, #15 TAB Prov:FREDI ARREOLA MD 03/19/25 Prednisone (Prednisone) 20 Mg Tab, 40 MG PO DAILY for 5 Days, #10 MG Prov:FREDI ARREOLA MD 03/19/25 Acetaminophen (Acetaminophen) 500 Mg Tab, 500 MG PO Q4HP PRN, #20 TAB Prov:DANAE SANCHEZ PAC 10/04/23 Phenazopyridine HCl (Phenazopyridine Hydrochlo) 100 Mg Tab, 100 MG PO Q8HP PRN, #10 TAB Prov:DANAE SANCHEZ PAC 10/04/23 Nitrofurantoin Monohydrate Mac (Macrobid) 100 Mg Cap, 100 MG PO BID for 5 Days, #10 CAP Prov:DANAE SANCHEZ PAC 10/04/23 Cyclobenzaprine Hcl (Cyclobenzaprine Hcl) 5 Mg Tab, 1 TAB PO QPM PRN, #30 TAB Prov:BLAS COLLAZO 12/04/22 Doxycycline (Monohydrate) (Doxycycline) 100 Mg Cap, 100 MG PO BID for 7 Days, #14 CAP 0 Refills Prov:JOSE ALEJANDRO COX 04/10/22 Acetaminophen (Acetaminophen) 500 Mg Tab, 500 MG PO QIDP, #30 TAB 0 Refills Prov:JOSE ALEJANDRO COX 04/10/22 Albuterol Sulfate (Albuterol Sulfate Hfa) 108 Mcg/Act Aer, 108 MCG IN TID for 20 Days, #1 AER 0 Refills Prov:SULEIMAN FORD 10/10/21 Prednisone (Prednisone) 20 Mg Tab, 60 MG PO DAILY for 5 Days, #15 MG Prov:SULEIMAN FORD 10/10/21 Cephalexin Monohydrate (Cephalexin) 500 Mg Tab, 500 MG PO QID for 7 Days, #28 TAB Prov:SULEIMAN FORD 10/10/21 Reported Medications Albuterol Sulfate (Albuterol Sulfate) 0.083 % Neb, 1 VIAL NEB PRN PRN for PRN, #50 VIAL 03/17/20 Methylprednisolone (Methylprednisolone) 4 Mg Tab, 4 MG PO BID PRN for "FLARE- UP", MG 03/17/20 Loratadine (Claritin) 10 Mg Tab, 1 TAB PO DAILY PRN for ALLERGIES, #30 TAB 5 Ref ills 03/17/20 Albuterol Sulfate (VENTOLIN MDI) 90 Mcg Ih, 2 PUFF IN PRN PRN for PRN, INH 03/17/20 Ibuprofen (Ibuprofen) 600 Mg Tab, 600 MG PO BID PRN for PAIN, MG 0 Refills 03/17/20 Mode of Arrival: EMS Past Medical History PAST MEDICAL HISTORY: Arthritis, Asthma, HTN Past Medical History (Other): Well's syndrome (Eosinophilic cellulitis) 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 Moist mucous membranes.) Neck: Full Range of Motion, Normal Inspection Respiratory: Lungs Clear, No Accessory Muscle Use, No Respiratory Distress, Normal Breath Sounds Cardiovascular: No Edema, No JVD, Regular Rate/Rhythm Breast Exam: Deferred Gastrointestinal: RLQ, Soft, Tenderness Genitalia: Deferred Pelvic: Deferred Rectal: Deferred Extremities: Normal inspection, Normal range of motion, Non-tender, No pedal edema Neurologic: Alert (Oriented x4), Normal Affect, Normal Mood, Other (Ambulatory) Cerebellar Function: NOT DONE Reflexes: NOT DONE Skin: Dry, Normal Color, Warm Lymphatic: NOT DONE Was a procedure done? Was a procedure done?: No GI differential Dx Differential Diagnosis: Appendicitis, Diverticular disease, Ectopic , Gastritis/PUD, Gastroenteritis, PID, UTI, Urolithiasis, Dehydration, Electrolyte Imbalance, Food Poisoning, , Bacterial, Viral, Impaction, Kidney Stone X-Ray, Labs, Meds, VS Vital Signs Date Time Temp Pulse Resp B/P (MAP) Pulse Ox O2 Delivery O2 Flow Rate FiO2 05/22/25 19:27 73 16 135/75 05/22/25 19:23 Room Air* 0 21 05/22/25 19:23 97.7 73 16 135/75 (95) 99 97.7 05/22/25 14:26 98.4 90 19 159/94 99 98.4 Lab Test 05/22/25 18:13 05/22/25 14:45 Range/Units Urine Color Light-yellow Yellow Urine Clarity Turbid H Clear Urine pH 5.0 5.0-9.0 Urine Specific [place] 1.018 1.001-1.035 Urine Protein Negative Negative Urine Ketones Negative Negative Urine Blood Negative Negative /uL Urine Nitrite Negative Negative Urine Bilirubin Negative Negative Urine Urobilinogen Normal Negative mg/dL Urine Leukocyte Esterase 1+ Negative /uL Urine RBC 2 0 - 4 /hpf Urine Microscopic WBC 8 H 0-5 /HPF Urine Squamous Epithelial Cells Mod <5 /hpf Urine Bacteria Few H None Seen /hpf Urine Hyaline Casts Few 0 - 2 /lpf Urine Mucus Few None Seen Urine Glucose Normal Normal mg/dL Urine Test Negative Negative White Blood Count 7.7 4.4-10.8 10^3/uL Red Blood Count 4.33 4.0-5.20 10^6/uL Hemoglobin 13.1 12.2-16.2 g/dL Hematocrit 38.5 36.0-46.0 % Mean Corpuscular Volume 88.9 80.0-100.0 fL Mean Corpuscular Hemoglobin 30.1 28.0-32.0 pg Mean Corpuscular Hemoglobin Concent 33.9 32.0-36.0 g/dL Red Cell Distribution Width 13.5 11.8-14.3 % Platelet Count 523 H 140-450 10^3/uL Mean Platelet Volume 7.1 6.9-10.8 fL Neutrophils (%) (Auto) 37.0-80.0 % Lymphocytes (%) (Auto) 10.0-50.0 % Monocytes (%) (Auto) 0.0-12.0 % Eosinophils (%) (Auto) 0.0-7.0 % Basophils (%) (Auto) 0.0-2.0 % Neutrophils # (Auto) 1.6-8.6 10 ^3/uL Lymphocytes # (Auto) 0.4-5.4 10 ^3/uL Monocytes # (Auto) 0-1.3 10 ^3/uL Differential Total Cells Counted 100.0 100 Neutrophils % (Manual) 40 37.0-80.0 Band Neutrophils % (Manual) 0 Lymphocytes % (Manual) 35 10.0-50.0 Monocytes % (Manual) 5 0-12 Eosinophils % (Manual) 20 H 0-7 Basophils % (Manual) 0 0.0-2.0 Metamyelocytes % (manual) 0 Myelocytes % (Manual) 0 Promyelocytes % (Manual) 0 Blast Cells % (Manual) 0 Reactive Lymphocytes 0 Platelet Estimate Increased Sodium Level 141 136-145 mmol/L Potassium Level 3.6 3.5-5.1 mmol/L Chloride Level 108 H 98-107 mmol/L Carbon Dioxide Level 21 20-31 mmol/L Anion Gap 12 5-15 Blood Urea Nitrogen 6 L 9-23 mg/dL Creatinine 0.85 0.550-1.02 mg/dL Glomerular Filtration Rate Calc 84 >90 mL/min BUN/Creatinine Ratio 7.1 L 10.0-20.0 Serum Glucose 116 H 74-106 mg/dL Calcium Level 9.3 8.7-10.4 mg/dL Total Bilirubin 0.3 0.2-1.0 mg/dL Aspartate Amino Transferase (AST) 25 13-40 U/L Alanine Aminotransferase (ALT) 22 7-40 U/L Alkaline Phosphatase 103 46-116 U/L Total Protein 7.5 5.7-8.2 g/dL Albumin 4.4 3.2-4.8 g/dL Current Medications Medications (Trade) Dose Ordered Sig/Justina Route Start Time Stop Time Status Last Admin Sodium Chloride 1,000 ml @ 1,000 mls/hr Q1H ONCE IV 05/22/25 14:45 05/22/25 15:44 DC 05/22/25 19:28 Ondansetron HCl (Zofran) 4 mg ONCE ONCE IV 05/22/25 14:45 05/22/25 14:46 DC 05/22/25 19:26 Morphine Sulfate 4 mg ONCE ONCE IV 05/22/25 14:45 05/22/25 14:46 DC 05/22/25 19:27 PROCEDURE(s): ABPL - CT AB PEL WO CON-NO ORAL OR IV REASON: rlq pain n/v ORDER NUMBER(s): [id number], ACCESSION NUMBER(s): [id number] Exam: CT CT AB PEL WO CON-NO ORAL OR IV History: rlq pain n/v Comparison Study: CT ABD PELVIS WO CONTRAST on DOS: 08/13/22, CT ABD PELVIS WO CONTRAST on DOS: 04/10/22, PELVIC on DOS: 12/03/20 TECHNIQUE: Multidetector CT of the abdomen and pelvis was performed from lung bases to pubic symphysis. Imaging was performed without IV contrast. Axial, coronal, and sagittal multiplanar reformats were obtained from the axial data set by the technologist. RADIATION DOSE: CTDI vol 6.76 > mGy. DLP 330.08 mGy.cm Findings: Limited evaluation of the solid organs in the absence of IV contrast. Liver: Diffuse hypoattenuation of the liver suggestive of hepatic steatosis. Hepatomegaly. Spleen: Unremarkable. Pancreas: Unremarkable. Gallbladder: Unremarkable. Adrenals: Unremarkable Kidneys: Left renal cysts. Mild bilateral renal cortical scarring. No hydronephrosis. Pelvic Viscera: Unremarkable. Vasculature: Unremarkable. Retroperitoneum: Unremarkable. Bowel: Colonic diverticulosis without CT evidence of diverticulitis. No bowel obstruction. No CT evidence of appendicitis. Musculoskeletal: Unremarkable. Soft tissues: Unremarkable Lungs: The lung bases are clear. Impression: 1. No acute abdominopelvic abnormality identified. 2. Incidental findings as detailed. X-Ray, Labs, Meds, VS Comment 49-year-old female with a history of asthma, Wells syndrome, hypertension and arthritis brought in by EMS complaining of right lower quadrant pain since yes terday. Vitals remarkable for BP 159/94 Exam remarkable for right lower quadrant tenderness to percussion and palpation. No rebound or guarding. Negative psoas or Rovsing sign. Rhythm strip independently interpreted by me: Sinus rhythm, rate 90, no ectopy. CT abdomen and pelvis Impression: 1. No acute abdominopelvic abnormality identified. 2. Incidental findings as detailed. CBC and CMP unremarkable. Urine negative. UA abnormal consistent with UTI Patient treated with the following in the ED: 1 L 0.9 normal saline IV bolus, morphine 4 mg IV, Zofran 4 mg IV, Levaquin 500 mg IV On re-evaluation, pain has improved. Vitals were stable. Patient appears stable for discharge with close outpatient follow-up with her primary physician. Rx Cipro, ibuprofen, Zofran Time of 1ST Reevaluation: 14:45 Reevaluation 1ST: Unchanged Patient Education/Counseling: Diagnosis, Treatment, Need For Follow Up Family Education/Counseling: No Family Present SEPSIS Sepsis Screen Date sepsis recognized/suspect: May 22, 2025 Time Sepsis recognized/suspect: 1419 Recent Procedure: No On Antibiotic Therapy: No Respiratory Rate >20: No Heart Rate >90: No Temp<36 C (96.8 F) or >38.3 C: No SBP <90 or MAP <65 mmHG: No New Acute Mental Status Change: No Is the patient on CPAP, BIPAP,: No Physician Orders Ct Ab Pel Wo Con-No Oral Or Iv (05/22/25 14:32) Npo (Nothing By Mouth) Diet (05/22/25 Dinner) Vital Signs Date Time Temp Pulse Resp B/P (MAP) Pulse Ox O2 Delivery O2 Flow Rate FiO2 05/22/25 19:27 73 16 135/75 05/22/25 19:23 Room Air* 0 21 05/22/25 19:23 97.7 73 16 135/75 (95) 99 97.7 05/22/25 14:26 98.4 90 19 159/94 99 98.4 Laboratory Tests Test 05/22/25 14:45 White Blood Count 7.7 10^3/uL (4.4-10.8) Medications Medications Dose Ordered Sig/Justina Route Start Time Stop Time Status Last Admin Dose Admin Morphine Sulfate 4 mg ONCE ONCE IV 05/22/25 14:45 05/22/25 14:46 DC 05/22/25 19:27 Ondansetron HCl 4 mg ONCE ONCE IV 05/22/25 14:45 05/22/25 14:46 DC 05/22/25 19:26 Sodium Chloride 1,000 ml @ 1,000 mls/hr Q1H ONCE IV 05/22/25 14:45 05/22/25 15:44 DC 05/22/25 19:28 Departure 1 Departure Time of Disposition: 20:00 Impression: Primary Impression: Urinary tract infection Qualified Codes: N39.0 - Urinary tract infection, site not specified Disposition: HOME / SELF CARE / HOMELESS Condition: Stable Additional Instructions: Blood tests were unremarkable. Your urine test showed you have a urinary tract infection. Your CT showed no appendicitis and was otherwise unremarkable. Your symptoms are likely due to the urinary tract infection. I have prescribed antibiotics and medication for pain and nausea. Follow-up with your primary doctor in 1-2 days. Return to ER for persistent or worsening symptoms. e-Prescriptions Ondansetron Odt 4MG Tab (ZOFRAN PO) 4 Mg Tb 4 MG PO TID PRN, #30 TAB Prn nausea/vomiting ODT TAB-DISSOLVE IN MOUTH, THEN SWALLOW Prov: NEFTALI SPARKS MD 05/22/25 Ibuprofen Micronized (Ibuprofen) 800 Mg Tab 800 MG PO Q8HP PRN, #30 TAB Prn pain. Take with food. Prov: NEFTALI SPARKS MD 05/22/25 Ciprofloxacin Hcl (Cipro) 500 Mg Tab 1 TAB PO BID for 10 Days, #20 TAB Prov: NEFTALI SPARKS MD 05/22/25 Discharged With: Relative Critical Care Note Critical Care Time?: No Stability Stability form required: No Heart Score Heart Score: Heart Score Response (Comments) Value History N/A 0 EKG N/A 0 Age N/A 0 Risk Factors N/A 0 Troponin N/A 0 Total 0 I personally scribed for NEFTALI SPARKS MD ([email or web address]) on 05/22/25 at 15:13. Electronically submitted by Prabhu Mark ([email or web address]). NEFTALI SPARKS MD May 22, 2025 15:13
[2025-05-22 15:19] LABS: Hematocrit 38.5 % (36.0-46.0); Hemoglobin 13.1 g/dL (12.2-16.2); Mean Corpuscular Hemoglobin 30.1 pg (28.0-32.0); Mean Corpuscular Volume 88.9 fL (80.0-100.0)
[2025-05-22 15:26] LABS: Alanine Aminotransferase 22 U/L (7-40); Albumin 4.4 g/dL (3.2-4.8); Alkaline Phosphatase 103 U/L (46-116); Anion Gap 12 (5-15); BUN/Creatinine Ratio 7.1 (10.0-20.0); Calcium 9.3 mg/dL (8.7-10.4); Carbon Dioxide 21 mmol/L (20-31); Potassium 3.6 mmol/L (3.5-5.1); Sodium 141 mmol/L (136-145); Total Protein 7.5 g/dL (5.7-8.2)
[2025-05-22 15:27] LABS: Bilirubin, Total 0.3 mg/dL (0.2-1.0); Blood Urea Nitrogen 6 mg/dL (9-23); Chloride 108 mmol/L (98-107); Glucose 116 mg/dL (74-106)
[2025-05-22 15:52] LABS: Total Cells Counted 100.0 (100)
[2025-05-22 18:22] LABS: Urine Protein, UAD Negative (Negative)
[2025-05-22 19:23] VITALS: TEMP 97.7; O2SAT 99
[2025-05-22] MEDS: ONDANSETRON HCL 4 MG/2 ML VIAL IV ONE (19:26)
[2025-05-22] MEDS: MORPHINE SULFATE 4 MG/ML SYR/VIAL IV ONE (19:27)
--- NOTE | 2025-05-22 19:27 | DVH ---
Exam: CT CT AB PEL WO CON-NO ORAL OR IV History: rlq pain n/v Comparison Study: CT ABD PELVIS WO CONTRAST on DOS: 08/13/22, CT ABD PELVIS WO CONTRAST on DOS: , PELVIC on DOS: 12/03/20 TECHNIQUE: Multidetector CT of the abdomen and pelvis was performed from lung bases to pubic symphysi s. Imaging was performed without IV contrast. Axial, coronal, and sagittal multiplanar reformats were obtained from the axial data set by the technologist. RADIATION DOSE: CTDI vol 6.76 > mGy. DLP 330.08 mGy.cm Findings: Limited evaluation of the solid organs in the absence of IV contrast. Liver: Diffuse hypoattenuation of the liver suggestive of hepatic steatosis. Hepatomegaly. Spleen: Unremarkable. Pancreas: Unremarkable. Gallbladder: Unremarkable. Adrenals: Unremarkable Kidneys: Left renal cysts. Mild bilateral renal cortical scarring. No hydronephrosis. Pelvic Viscera: Unremarkable. Vasculature: Unremarkable. Retroperitoneum: Unremarkable. Bowel: Colonic diverticulosis without CT evidence of diverticulitis. No bowel obstruction. No CT polina dence of appendicitis. Musculoskeletal: Unremarkable. Soft tissues: Unremarkable Lungs: The lung bases are clear. Impression: 1. No acute abdominopelvic abnormality identified. 2. Incidental findings as detailed.
[2025-05-22] MEDS: SODIUM CHLORIDE 0.9% 1,000 ML IV ONE (19:28)
[2025-05-22 19:57] VITALS: BP 128/84; PULSE 68; RESP 16
[2025-05-22] MEDS ORDERED: CIPR-173 PO (20:07)
[2025-05-22] MEDS ORDERED: IBUP-1455 PO (20:07)
[2025-05-22] MEDS ORDERED: ZOFR4T PO (20:07)
== END 2025-05-22 21:36 | disposition home or self-care (01) ==
LOC: ER 14:24 → EDBD 14:24 → EDUNIT# 14:24 → ER 21:36
DX: N39.0 Urinary tract infection, site not specified (principal); J45.909 Unspecified asthma, uncomplicated; M19.90 Unspecified osteoarthritis, unspecified site; I10 Essential (primary) hypertension; Z88.0 Allergy status to penicillin; Z79.899 Other long term (current) drug therapy
CPT/HCPCS: 36415; 74176; 80053; 81001; 81025; 85007; 85027; 96361; 96365; 96375; 99285; J1956; J2270; J2405; J7030